=== PATIENT | male | born 1990 | race Two or more races ===

== ENCOUNTER 2023-11-15 19:51 | Emergency (ER) | payer MEDICAID ==
[~2023-11-15] VITALS: Ht 175.3 cm; Wt 83.9 kg
[2023-11-15] MEDS ORDERED: ACYC400T19 PO (21:34)
[2023-11-15] MEDS ORDERED: PRED20TA PO (21:34)
[2023-11-15] MEDS ORDERED: POLY15DR31 LEFTEYE (21:34)
[2023-11-15 22:06] VITALS: BP 158/57; TEMP 98.5; O2SAT 99
== END 2023-11-15 22:07 | disposition home or self-care (01) ==
LOC: ER 19:59
DX: G51.0 Bell's palsy (principal)